=== PATIENT | male | born 1985 | race American Indian/Alaskan Native ===

== ENCOUNTER 2018-01-13 14:19 | Emergency (ER) | payer SELFPAY ==
[2018-01-13 15:46] LABS: Basophils % (Auto) 0.5 % (0.0-1.8); Eosinophils % (Auto) 0.6 % (0.0-4.3); Hematocrit 33.9 % (35.5-45.6); Hemoglobin 11.5 gm/dl (11.8-15.2); Lymphocytes # (Auto) 4.4 K/mm3 (1.2-5.4); Lymphocytes % (Auto) 50.3 % (13.4-35.0); Mean Corpuscular HGB Conc 34 % (32-34); Mean Corpuscular Hemoglobin 32 pg (28-32); Mean Corpuscular Volume 94 fl (84-94); Monocytes # (Auto) 0.6 K/mm3 (0.0-0.8); Monocytes % (Auto) 6.7 % (0.0-7.3); Platelet Count 381 K/mm3 (140-440); Red Blood Count 3.61 M/mm3 (3.65-5.03); Red Cell Distribution Width 13.1 % (13.2-15.2)
[2018-01-13 16:00] LABS: BUN/Creatinine Ratio 59; Blood Urea Nitrogen 41 mg/dL (9-20); Calcium 9.4 mg/dL (8.4-10.2); Hemolysis Index 2
--- NOTE | 2018-01-13 16:23 | XRay Report ---
FINAL REPORT EXAM: XR CHEST ROUTINE 2V HISTORY: Shortness of breath TECHNIQUE: Two view chest PA and lateral PRIORS: None. FINDINGS: Cardiac and mediastinal contours are unremarkable. No focal pulmonary infiltrate is identified. No pleural fluid collection seen. Pulmonary vasculature is unremarkable. IMPRESSION: Negative two-view chest
--- NOTE | 2018-01-13 17:38 | Emergency Department Report ---
HPI - General Chief Complaint: Dizziness Time Seen by Provider: 01/13/18 17:12 - HPI HPI: 32-year-old male presents to the emergency department with the complaints of generalized dizziness and/or drowsiness all day. He says that this morning he was urinating after waking up and felt like he was going to pass out. He then went into work and says that he had a bowel movement that was dark black. He also had one of these episodes yesterday. The patient says that he had some chest pain yesterday as well but that has since resolved. However he does have some shortness of breath with exertion but not at rest. He is a former smoker. He otherwise denies any past medical history. No recent travel or sick contacts at home. He does not have a primary care physician. He did not take anything for his symptoms prior to presentation today. ED Past Medical Hx - Past Medical History Previous Medical History?: Yes Additional medical history: [facility] 2008 - Surgical History Past Surgical History?: Yes Additional Surgical History: [facility] [address] ([address]) - Social History Smoking Status: Never Smoker Substance Use Type: None - Medications Home Medications: Home Medications Medication Instructions Recorded Confirmed Last Taken Type Prednisone [predniSONE 10 mg 10 mg PO .TAPER #1 tab.ds.pk 08/11/14 Unknown Rx (6-Day Pack, 21 Tabs)] diphenhydrAMINE [Benadryl] 25 mg PO Q8HR PRN #20 capsule 08/11/14 Unknown Rx traMADol [Ultram 50 MG tab] 50 mg PO Q6HR PRN #20 tablet 08/11/14 Unknown Rx Acetaminophen/Codeine [Tylenol 1 tab PO Q8H PRN #10 tab 01/13/18 Unknown Rx /Codeine # 3 tab] ED Review of Systems ROS: Stated complaint: SHORTNESS OF BREATH/DIZZY/FATIGUE/BODYACHES Other details as noted in HPI Comment: All other systems reviewed and negative Constitutional: denies: chills, fever Eyes: denies: eye pain, eye discharge, vision change ENT: denies: ear pain, throat pain Respiratory: SOB with exertion. denies: cough, wheezing Cardiovascular: chest pain (resolved). denies: edema Gastrointestinal: melena. denies: abdominal pain, nausea, diarrhea Genitourinary: denies: urgency, dysuria Musculoskeletal: denies: back pain, joint swelling, arthralgia Skin: denies: rash, lesions Neurological: other (dizziness). denies: headache Physical Exam - Physical Exam Vital Signs: Vital Signs 01/13/18 15:17 Temperature 98.8 F Pulse Rate 110 H Blood Pressure 103/70 O2 Sat by Pulse 99 Oximetry ED Course Vital Signs 01/13/18 15:17 Temperature 98.8 F Pulse Rate 110 H Blood Pressure 103/70 O2 Sat by Pulse 99 Oximetry ED Medical Decision Making - Lab Data Result diagrams: 01/13/18 15:27 01/13/18 15:27 - EKG Data -: EKG Interpreted by Me EKG shows normal: sinus rhythm, axis, intervals, QRS complexes (5), ST-T waves ( early repolarization) Rate: normal - EKG Data When compared to previous EKG there are: previous EKG unavailable Interpretation: other (sinus rhythm, normal axis, normal intervals, normal rate , early repolarization) Critical care attestation.: If time is entered above; I have spent that time in minutes in the direct care of this critically ill patient, excluding procedure time. ED Disposition Clinical Impression: Dizziness, Toothache, Melena Disposition: - TO HOME OR SELFCARE Is pt being admited?: No Condition: Stable Instructions: Rectal Bleeding (ED), Near Syncope (ED), Lightheadedness (ED), Dizziness (ED), Toothache (ED) Additional Instructions: Please follow up with a primary care physician in the next few days. I have given you a referral for a local feltmaker, Dr. James, to follow up regarding the dark stools and blood in the stool. I have also given you a referral for a local dental clinic regarding your toothache. Return to the emergency Department with any worsening of your symptoms or any acute distress. You have been prescribed a medication that is sedating and therefore should not be taken prior to driving, working, and responsible for children and in no way should be mixed with alcohol of any quantity. Prescriptions: Acetaminophen/Codeine [Tylenol /Codeine # 3 tab] 1 tab PO Q8H PRN #10 tab PRN Reason: Pain Referrals: PRIMARY CARE, [Primary Care Provider] - 3-5 Days MAHNAZ JAMES MD [Staff Physician] - 3-5 Days DEEPA MORA MD [Staff Physician] - 3-5 Days [facility] [Outside] - 3-5 Days [facility] [Outside] - 3-5 Days Time of Disposition: 20:31
[2018-01-13] MEDS ORDERED: NACL 0.9% 1000 ML 1,000 ML IV ONE (18:45)
[2018-01-13] MEDS ORDERED: PROTONIX IV ONE (18:45)
[2018-01-13 19:42] VITALS: BP 117/64
== END 2018-01-13 20:50 | disposition home or self-care (01) ==
LOC: ED 14:19
DX: K92.1 Melena (principal); R42 Dizziness and giddiness; R06.02 Shortness of breath; R07.9 Chest pain, unspecified; K08.89 Other specified disorders of teeth and supporting structures
CPT/HCPCS: 36415; 71046; 80048; 84443; 84484; 85025; 85379; 86850; 86900; 86901; 93005; 93010; 96361; 96374; 99284; C9113; J7030